=== PATIENT | male | born 1955 | race Caucasian/White ===

== ENCOUNTER 2017-06-28 09:21 | Inpatient (IN) | payer OTHER ==
[2017-06-21 11:29] VITALS: BMI 30.8
[~2017-06-28 09:21] MED LIST: CEFAZOLIN 2 GM/D5W 2 GM/50 ML ML IVPB ONE; TRANEXAMIC ACID 1000 MG/10 ML VIAL IVPUSH ONE
[2017-06-28] MEDS ORDERED: oxyCODONE HCL 10 MG SUSTAINED ACTING TABLET PO ONE ×2 (09:24)
[2017-06-28] MEDS ORDERED: CELECOXIB 200 MG CAPSULE PO ONE (09:24)
[2017-06-28] MEDS ORDERED: VANCOMYCIN 1 GRAM (PRE-DOCKED) 1,000 MG/250 ML BAG IVPB ONE (10:00)
[2017-06-28] MEDS ORDERED: oxyCODONE HCL 10 MG SUSTAINED ACTING TABLET ONE (12:03)
[2017-06-28] MEDS ORDERED: CELECOXIB 200 MG CAPSULE ONE (12:04)
[2017-06-28] MEDS ORDERED: ROPIVACAINE HCL 0.5% 30ML VIAL ONE (12:54)
[2017-06-28] MEDS ORDERED: EPINEPHrine/PF 1 MG/1 ML (1:1,000) AMPULE ONE (12:54)
[2017-06-28] MEDS ORDERED: DEXAMETHASONE SOD PHOSPHATE/PF 10 MG/ML SDV ONE (12:54)
[2017-06-28] MEDS ORDERED: MIDAZOLAM HCL 2 MG/2 ML SINGLE DOSE VIAL ONE ×4 (12:54→18:01)
[2017-06-28] MEDS ORDERED: ceFAZolin SODIUM 1 GM VIAL ONE ×2 (13:08→18:32)
[2017-06-28] MEDS ORDERED: TRANEXAMIC ACID 1000 MG/10 ML VIAL ONE (13:08)
[2017-06-28] MEDS ORDERED: VANCOMYCIN 1,000 MG VIAL (RESTRICTED TO ID ONLY) ONE (13:08)
[2017-06-28] MEDS ORDERED: PROPOFOL 20 ML ONE (13:08)
[2017-06-28] MEDS ORDERED: SODIUM CHLORIDE 0.9% P/F 10 ML VIAL IJ ONE (13:13)
[2017-06-28] MEDS ORDERED: DESFLURANE GAS 240 ML BOTTLE IH ONE (13:20)
[2017-06-28] MEDS ORDERED: ONDANSETRON 4 MG/2 ML VIAL IVPUSH PRN ×2 (19:00→20:09)
[2017-06-28] MEDS ORDERED: SENNOSIDES/DOCUSATE COMBO (SENNA PLUS) TABLET (UD) PO PRN (19:00)
--- NOTE | 2017-06-28 19:22 | OP ---
Operative Note - Note: Operative Date: 06/28/17 Pre-Operative Diagnosis: Left hip DJD Operation: Left total hip replacement Implants: Antoinette. Cup - Trident, 58mm, cluster hole. Poly - 32mm, neutral. Stem - Accolade II, #5, 127 degree NSA (high offset). Head - 32mm, +4mm, Ceramic/Biolox Post-Operative Diagnosis: Same as Pre-op Surgeon: Jose M Salazar Relay Repairer: Mark Salazar Anesthesiologist/HOT DIMPLING MACHINE OPERATOR: Dominick Bang Anesthesia: Spinal Specimens Removed: Left femoral head Estimated Blood Loss (mls): 150 Fluid Volume Replaced (mls): 2,000 (Crystalloid) Operative Report Dictated: Yes
--- NOTE | 2017-06-28 19:25 | PN ---
Progress Note (short form) - Note Progress Note: 62M s/p L AUDREY POD #0. -Pain control. -DVT PPx: -Chemical: ASA 81mg PO BID x 6 weeks. -Mechanical: YUAN's, SCD's. -Incentive spirometry. -PT/OT/Rehab, OOB. -WBAT LLE. -Post-op Ancef x 2 doses. -f/u post-op TOV. -f/u AM labs. -Diet. -Care per medical hospitalist team. -Discharge planning. -Will follow. Jose M Salazar MD (Orthopaedic Surgery).
[2017-06-28] MEDS ORDERED: PROMETHAZINE HCL 25 MG/1 ML VIAL IVPUSH PRN (20:09)
[2017-06-28] MEDS ORDERED: oxyCODONE HCL 5 MG TABLET PO PRN (20:09)
[2017-06-28] MEDS ORDERED: LACTATED RINGERS SOLUTION 1,000 ML IV SCH (20:15)
[2017-06-28] MEDS ORDERED: ACETAMINOPHEN 325 MG TABLET (FP) PO PRN (21:00)
[2017-06-28] MEDS: ACETAMINOPHEN 325 MG TABLET (FP) PO SCH ×2 (21:55→22:44)
[2017-06-28] MEDS: ASPIRIN 81 MG CHEWABLE TABLETS PO SCH (22:42)
[2017-06-28] MEDS: oxyCODONE HCL 10 MG SUSTAINED ACTING TABLET PO SCH (22:42)
[2017-06-29] MEDS: ACETAMINOPHEN 325 MG TABLET (FP) PO SCH ×4 (01:39→19:37)
[2017-06-29] MEDS: ceFAZolin 2 GRAM PREMIX BAG IVPB SCH ×2 (01:39→09:54)
[2017-06-29] MEDS: oxyCODONE HCL 5 MG TABLET PO PRN ×2 (01:39→04:50)
[2017-06-29 08:27] LABS: HEMOGLOBIN 13.1 GM/dl (11.7-16.9); MCH 32.3 pg (25.7-33.7); MCHC 34.5 g/dl (32.0-35.9); MEAN CELL VOLUME 93.5 fl (80-96); MEAN PLT VOLUME 7.5 fl (7.5-11.1); PLATELET COUNT 182 K/MM3 (134-434); RBC 4.06 M/mm3 (4.00-5.60); RDW 11.8 % (11.9-15.9)
[2017-06-29 09:08] LABS: ANION GAP 7 (8-16); BLOOD UREA NITROGEN 19 mg/dl (7-18); CALCIUM 8.5 mg/dl (8.4-10.2); CHLORIDE 102 mmol/L (98-107); CO2 25 mmol/L (22-28); GLUCOSE,RANDOM 134 mg/dl (74-106); POTASSIUM 4.2 mmol/L (3.5-5.1); SODIUM 134 mmol/L (136-145)
[2017-06-29 09:28] LABS: CREATININE < 0.8 mg/dl (0.6-1.3)
[2017-06-29] MEDS: ASPIRIN 81 MG CHEWABLE TABLETS PO SCH ×2 (09:54→22:32)
[2017-06-29] MEDS: oxyCODONE HCL 10 MG SUSTAINED ACTING TABLET PO SCH ×2 (09:54→22:40)
--- NOTE | 2017-06-29 10:16 | PN ---
Progress Note (short form) - Note Progress Note: Anesthesiology Post-op/Pain Service 62 y.o. man POD#1 s/p left THR under peripheral nerve blocks and spinal anesthesia. Pt. doing well, participating in PT. He does c/o some pain but states it is 3/ 10. VSS. No residual paresthesia. 62 y.o. with stable post-operative course s/p left THR. Continue post-op management as per primary team.
--- NOTE | 2017-06-29 17:03 | CONSULT ---
Consultation: REQUESTING PROVIDER: Dr Salazar CONSULT REQUEST: We have been asked to medically evaluate this patient for medical management HISTORY OF PRESENT ILLNESS: Patient is a 62 y/o male with a past medical history of left hip degenerative joint disease, patient is s/p left hip replacement, 06/28/17, Dr Salazar, spinal anesthesia. REVIEW OF SYSTEMS: CONSTITUTIONAL: Absent: fever, chills, diaphoresis, generalized weakness, malaise, loss of appetite, weight change HEENT: Absent: rhinorrhea, nasal congestion, throat pain, throat swelling, difficulty swallowing, mouth swelling, ear pain, eye pain, visual changes CARDIOVASCULAR: Absent: chest pain, syncope, palpitations, irregular heart rate, lightheadedness , peripheral edema RESPIRATORY: Absent: cough, shortness of breath, dyspnea with exertion, orthopnea, wheezing, stridor, hemoptysis GASTROINTESTINAL: Absent: abdominal pain, abdominal distension, nausea, vomiting, diarrhea, constipation, melena, hematochezia GENITOURINARY: Absent: dysuria, frequency, urgency, hesitancy, hematuria, flank pain, genital pain MUSCULOSKELETAL: Absent: myalgia, arthralgia, joint swelling, back pain, neck pain SKIN: Absent: rash, itching, pallor HEMATOLOGIC/IMMUNOLOGIC: Absent: easy bleeding, easy bruising, lymphadenopathy, frequent infections ENDOCRINE: Absent: unexplained weight gain, unexplained weight loss, heat intolerance, cold intolerance NEUROLOGIC: Absent: headache, focal weakness or paresthesias, dizziness, unsteady gait, seizure, mental status changes, bladder or bowel incontinence PSYCHIATRIC: Absent: anxiety, depression, suicidal or homicidal ideation, hallucinations. PHYSICAL EXAMINATION Vital Signs - 24 hr 06/28/17 06/28/17 06/28/17 19:15 19:20 19:25 Temperature 98.7 F 98.7 F 98.7 F Pulse Rate 80 76 81 Respiratory 16 16 16 Rate Blood Pressure 93/64 96/59 86/59 O2 Sat by Pulse 96 96 96 Oximetry (%) 06/28/17 06/28/17 06/28/17 19:30 19:45 20:00 Temperature 98.7 F 98.7 F 98.7 F Pulse Rate 79 70 66 Respiratory 16 16 16 Rate Blood Pressure 87/62 85/60 85/56 O2 Sat by Pulse 96 96 96 Oximetry (%) 06/28/17 06/28/17 06/28/17 20:15 20:30 20:35 Temperature 98.7 F 98.7 F 98.7 F Pulse Rate 76 76 76 Respiratory 16 16 16 Rate Blood Pressure 89/56 92/56 92/56 O2 Sat by Pulse 96 96 Oximetry (%) 06/28/17 06/28/17 06/29/17 22:17 22:53 00:54 Temperature 98.8 F Pulse Rate 82 74 Respiratory 16 18 18 Rate Blood Pressure 90/59 98/62 O2 Sat by Pulse 96 97 Oximetry (%) 06/29/17 06/29/17 06/29/17 05:33 05:34 08:31 Temperature 98.6 F Pulse Rate 64 Respiratory 18 18 Rate Blood Pressure 92/50 O2 Sat by Pulse 99 96 Oximetry (%) 06/29/17 14:00 Temperature 98.8 F Pulse Rate 61 Respiratory 18 Rate Blood Pressure 97/62 O2 Sat by Pulse 100 Oximetry (%) GENERAL: Awake, alert, and fully oriented, in no acute distress. HEAD: Normal with no signs of trauma. EYES: Pupils equal, round and reactive to light, extraocular movements intact, sclera anicteric, conjunctiva clear. No lid lag. EARS, NOSE, THROAT: Ears normal, nares patent, oropharynx clear without exudates. Moist mucous membranes. NECK: Normal range of motion, supple without lymphadenopathy, JVD, or masses. LUNGS: Breath sounds equal, clear to auscultation bilaterally. No wheezes, and no crackles. No accessory muscle use. HEART: Regular rate and rhythm, normal S1 and S2 without murmur, rub or gallop. ABDOMEN: Soft, nontender, not distended, normoactive bowel sounds, no guarding, no rebound, no masses. No hepatomegaly or splenomegaly. MUSCULOSKELETAL: Normal range of motion at all joints. No bony deformities or tenderness. No CVA tenderness. UPPER EXTREMITIES: 2+ pulses, warm, well-perfused. No cyanosis. No clubbing. Cap refill <2 seconds. No peripheral edema. LOWER EXTREMITIES: 2+ pulses, warm, well-perfused. No calf tenderness. No peripheral edema. NEUROLOGICAL: Cranial nerves II-XII intact. Normal speech. Normal gait. PSYCHIATRIC: Cooperative. Good eye contact. Appropriate mood and affect. SKIN: Warm, dry, normal turgor, no rashes or lesions noted. Laboratory Results - last 24 hr 06/29/17 06/29/17 08:24 08:27 WBC 12.0 H RBC 4.06 Hgb 13.1 Hct 38.0 MCV 93.5 MCH 32.3 MCHC 34.5 RDW 11.8 L Plt Count 182 MPV 7.5 Sodium 134 L Potassium 4.2 Chloride 102 Carbon Dioxide 25 Anion Gap 7 L BUN 19 H Creatinine < 0.8 Random Glucose 134 H Calcium 8.5 Active Medications Generic Name Dose Route Start Last Admin Trade Name Freq PRN Reason Stop Dose Admin Acetaminophen 650 mg 06/28/17 21:00 Tylenol - PO Q4H PRN FEVER Acetaminophen 650 mg 06/28/17 20:15 06/29/17 14:56 Tylenol - PO 07/01/17 20:14 650 mg Q6H SUNDAR Administration Aspirin 81 mg 06/28/17 22:00 06/29/17 09:54 Asa - PO 81 mg BID SUNDAR Administration Lactated Ringer's 1,000 mls @ 75 mls/hr 06/28/17 20:15 06/28/17 22:45 Lactated Ringers Solution IV 75 mls/hr ASDIR SUNDAR Administration Ondansetron HCl 4 mg 06/28/17 19:00 Zofran Injection IVPUSH Q6H PRN NAUSEA Oxycodone HCl 5 mg 06/28/17 20:09 Roxicodone - PO Q3H PRN PAIN LEVEL 1-5 Oxycodone HCl 10 mg 06/28/17 20:09 06/29/17 04:50 Roxicodone - PO 10 mg Q3H PRN Administration PAIN LEVEL 6-10 Oxycodone HCl 10 mg 06/28/17 22:00 06/29/17 09:54 Oxycontin - PO 07/01/17 20:10 10 mg BID SUNDAR Administration Senna/Docusate Sodium 2 tablet 06/28/17 19:00 Pericolace - PO HS PRN CONSTIPATION ASSESSMENT/PLAN: 1) ms s/p left hip replacement, POD #1 - prn pain medication - physical therapy as per the orthopedist, Dr Salazar - incentive spirometer - prn pain medication Dispo: We will continue to follow the patient. Thank you for this consultative opportunity. Visit type - Emergency Visit Emergency Visit: No - New Patient This patient is new to me today: Yes Date on this admission: 06/29/17 - Critical Care Critical Care patient: No
[2017-06-29] MEDS ORDERED: oxyCODONE HCL 5 MG TABLET ONE (19:34)
[2017-06-29] MEDS ORDERED: ACETAMINOPHEN 325 MG TABLET (FP) ONE (19:34)
[2017-06-29] MEDS ORDERED: oxyCODONE HCL 10 MG SUSTAINED ACTING TABLET ONE (22:39)
[2017-06-30] MEDS ORDERED: oxyCODONE HCL 5 MG TABLET ONE (03:59)
[2017-06-30] MEDS: oxyCODONE HCL 5 MG TABLET PO PRN ×2 (04:01→09:27)
[2017-06-30] MEDS: ACETAMINOPHEN 325 MG TABLET (FP) PO SCH (04:02)
[2017-06-30 06:15] VITALS: BP 126/37; PULSE 80; TEMP 98.9
--- NOTE | 2017-06-30 07:21 | PN ---
Progress Note (short form) - Note Progress Note: POD #2 s/p Left total hip replacement
--- NOTE | 2017-06-30 07:45 | DS ---
Physical Exam: SUBJECTIVE: POD #2 s/p LEFT total hip arthroplasty. Patient seen and examined OBJECTIVE: Vital Signs Temperature 98.9 F 06/30/17 06:14 Pulse Rate 80 06/30/17 06:14 Respiratory Rate 18 06/30/17 06:14 Blood Pressure 126/37 06/30/17 06:14 O2 Sat by Pulse Oximetry (%) 95 06/30/17 06:14 PHYSICAL EXAM GENERAL: The patient is awake, alert, and fully oriented, in no acute distress. HEAD: Normal with no signs of trauma. EYES: PERRL, extraocular movements intact, sclera anicteric, conjunctiva clear. ENT: Ears normal, nares patent, oropharynx clear without exudates, moist mucous membranes. NECK: Trachea midline, full range of motion, supple. LUNGS: cta bilat HEART: rrr ABDOMEN: Soft, nt, nd, normoactive bowel sounds EXTREMITIES: 2+ pulses, warm, well-perfused, no edema. GMNVI NEUROLOGICAL: Cranial nerves II through XII grossly intact. Normal speech, gait not observed. PSYCH: Normal mood, normal affect. SKIN: Warm, dry, normal turgor, no rashes or lesions noted. LABS CBC,CMP WBC 12.0 K/mm3 (4.0-10.8) H 06/29/17 08:24 RBC 4.06 M/mm3 (4.00-5.60) 06/29/17 08:24 Hgb 13.1 GM/dl (11.7-16.9) 06/29/17 08:24 Hct 38.0 % (35.4-49) 06/29/17 08:24 MCV 93.5 fl (80-96) 06/29/17 08:24 MCH 32.3 pg (25.7-33.7) 06/29/17 08:24 MCHC 34.5 g/dl (32.0-35.9) 06/29/17 08:24 RDW 11.8 % (11.9-15.9) L 06/29/17 08:24 Plt Count 182 K/MM3 (134-434) 06/29/17 08:24 MPV 7.5 fl (7.5-11.1) 06/29/17 08:24 Sodium 134 mmol/L (136-145) L 05/24/18 08:27 Potassium 4.2 mmol/L (3.5-5.1) 06/29/17 08:27 Chloride 102 mmol/L (98-107) 06/29/17 08:27 Carbon Dioxide 25 mmol/L (22-28) 06/29/17 08:27 Anion Gap 7 (8-16) L 06/29/17 08:27 BUN 19 mg/dl (7-18) H 06/29/17 08:27 Creatinine < 0.8 mg/dl (0.6-1.3) 06/29/17 08:27 Random Glucose 134 mg/dl (74-106) H 06/29/17 08:27 Calcium 8.5 mg/dl (8.4-10.2) 06/29/17 08:27 HOSPITAL COURSE: Date of Admission:06/28/17 Date of Discharge: 06/30/17 The patient was admitted to the Med-Surg Unit after an elective repair of left hip DJD. Now, s/p left total hip replacement. The day of surgery, the patient ambulated the hallways with assistance. Narcotic and non-narcotic pain management control was achieved with an oral and IV approach. Grecia-operative IV ABX were administered. DVT prophylaxis was achieved with SCDs and early ambulation. The discharge instructions and an oral pain management plan were reviewed with the patient. All questions answered. Above plan discussed with Dr. Salazar and agreed. Minutes to complete discharge: 25 Visit type - Case Type Case Type: Scheduled - New patient This patient is new to me today: Yes Date on this admission: 06/30/17
[2017-06-30 08:08] LABS: HEMATOCRIT 36.9 % (35.4-49); HEMOGLOBIN 12.9 GM/dl (11.7-16.9); MCH 33.2 pg (25.7-33.7); MCHC 35.1 g/dl (32.0-35.9); MEAN CELL VOLUME 94.4 fl (80-96); MEAN PLT VOLUME 7.9 fl (7.5-11.1); PLATELET COUNT 167 K/MM3 (134-434); RBC 3.91 M/mm3 (4.00-5.60); RDW 11.9 % (11.9-15.9); WHITE BLOOD COUNT 9.7 K/mm3 (4.0-10.8)
[2017-06-30] MEDS ORDERED: PT OWN MED DRAWER 7, Y5N ONE (09:22)
[2017-06-30] MEDS: ASPIRIN 81 MG CHEWABLE TABLETS PO SCH (09:29)
--- NOTE | 2017-07-04 17:34 | PATH ---
Surgical Pathology Report Patient Name: NIKOLAS ZAVALA Med. Rec. #: [id number] /Age/Gender: 1955 (Age: 62) / M Account: [id number] Location: [facility] MED-SURG Taken: 06/29/2017 Received: 06/29/2017 Reported: 07/04/2017 Physicians: Jose M Salazar M.D. Specimen(s) Received LEFT FEMORAL HEAD Clinical History Left Left hip osteoarthritis Final Diagnosis LEFT FEMORAL HEAD, RESECTION: DEGENERATIVE JOINT DISEASE, LEFT HIP. Electronically Signed Kaushal Robin M.D. Gross Description Received in formalin, labeled "left femoral head," is a 4.5 x 4.5 x 4.0 cm. femoral head with a 0.9 cm in length portion of femoral neck attached. The margin of resection is smooth. There is a 4.5 cm in greatest dimension area of eburnation present. The remaining articular surface is zaldivar-yellow and diffusely granular. The underlying trabecular bone is yellow and hard. A malt liquors sales representative section is submitted in one cassette, following decalcification. /06/30/2017 [facility]06/30/2017
--- NOTE | 2017-07-06 13:09 | OP ---
DATE OF OPERATION: 06/28/2017 DIAGNOSIS: Left hip degenerative joint disease. OPERATION: Left total hip replacement via direct superior approach. ESTIMATED BLOOD LOSS: 150 mL. FLUID INTAKE: Crystalloid 2 liters. PERIOPERATIVE ANTIBIOTICS GIVEN: Vancomycin 1 g and Ancef 2 g preop with 1 g Ancef given at the time of seating of the femoral implant. IMPLANTS USED: [place] cup; Trident 58-mm, cluster hole, polyethylene 32-mm neutral stem; Accolade II number 5, 127-degree neck-shaft angle, high-offset head; a 32- mm, +4-mm length ceramic Biolox. DICTATION ENDS HERE Pre-Operative Diagnosis: Left hip DJD. Post-Operative Diagnosis: Same. Surgical Procedure: Left total hip replacement. Anaesthesia: Spinal, sedation. Position: Right lateral decubitus. Incision: Direct Superior. Estimated Blood Loss: See anaesthesia record. Intravenous Fluid: See anaesthesia record. Specimens: Left femoral head. Drains: None. Complications: None. Urine output: None. Bacteriology: None. Transfusions: None. Closure: #1, 2-0 Vicryl; 3-0 Biosyn. Indications: The patient was indicated for a left total hip replacement in order to facilitate improved motion and mobilization, and to prevent the complications associated with a sedentary lifestyle. The patient was identified in the holding area by his armband. A long discussion was held with the patient regarding the risks, benefits and alternatives of the above named procedure. Risks include but are not limited to : pain, bleeding, infection, damage to surrounding structures (including nerves , blood vessels, skin, ligaments, tendons and bone), wound complications, failure of hardware/implants/reduction, need for further surgery, blood clots, myocardial infarction, pulmonary embolism, cerebrovascular insult, anaesthesia complications, compartment syndrome, limb loss, limp, loss of function, and . Benefits as mentioned above. Alternatives include no surgery. All questions were answered. The patient understood and agreed to the procedure. Informed consent was obtained, witnessed and verified. The patients correct operative limb - that is the left lower extremity - was marked, and the patient was taken to the operating room after being seen by the anesthesia and nursing staff. Procedure: The patient was brought into the operating room, placed on the OR table and secured with a safety strap. Consent and the operative site were again verified with the patient and nursing and anaesthesia staff. Anaesthesia, IV antibiotics, and TXA were then administered without complication. A time out was done led by , the attending surgeon. A pre-operative orthpaedic exam revealed a 1-2cm leg length discrepancy, shorter on the left thank the right, and a marked reduction in passive range of motion of the left hip. The patient was gently turned into the right lateral decubitus position. An axillary roll was placed. A Stulberg hip positioner with well-padded bolsters was used to secure the patient in the lateral decubitus position. The down arm was placed on a well-padded arm board. The up arm was brought across the patients body and placed on 2 pillows. Egg crates were placed under the down knee and ankle, and bony prominences were well padded. The operative site was then prepped and draped in the standard sterile fashion. Time out was again done and the case began. Operation: A standard Direct Superior surgical approach was utilized to access the hip joint. With a #10 blade, a skin incision was taken from the posterior-superior corner of the greater trochanter in a posterior-superior direction. This was approximately 10cm in length. Electrocautery was utilized to carry the deep dissection down to the level of the gluteus antoine fascia. Hemostasis was assured using electrocautery (bipolar and unipolar). The gluteus antoine fascia was incised, and the fibers of gluteus antoine were in line with the trajectory of the incision. This confirmed the accuracy of our planned incision based on palpated landmarks and surface anatomy. A Shaver elevator was used to split the distal fibers of gluteus antoine, in line with the fibers, just proximal to their insertion into the iliotibial band. Great care was taken not to incise the iliotibial band. Gluteus antoine fibers were split proximally using the Shaver elevator until reaching the apex of the wound. Again, hemostasis was assured. The kalin-capsular fat pad was exposed utilizing curved handle bar retractors. The kalin-capsular fat pad was excised off the inferior border of the gluteus medius muscle belly, exposing the insertion of the hip short external rotator muscle group. The piriformis tendon was identified and freed from adhesions to the capsule using a 90-degree clamp. This tendon was then released from its insertion using electrocautery. The tendon was tagged with a # 1 Ethibond suture and tied to the inferior aspect of the proximal wound apex. The tendon, thus, served as a sling to retract and protect the sciatic nerve. With the piriformis tendon reflected away from its insertion, the hip joint capsule was visualized. Electrocautery was used to perform a capsulotomy and synovial joint fluid was aspirated. Next, the superior leaflet of the capsule was elevated using a Shaver elevator to create separation from the underlying labrum and also to create a plane for later placement of a supra-acetabular retractor. The labrum was excised using electrocautery. The hip was then gently dislocated. A standard femoral neck cut was made using an oscillating saw. A 3/4 " osteotome was delivered into the femoral head using mallet strikes. The femoral head was then removed. Anterior, inferior, and supra-acetabular retractors were placed to expose the acetabulum. The pulvinar was excised using electrocautery. Odd sized reamers were used to prepare the acetabular bone bed. Healthy blushes of bleeding were observed from the reamed cancellous bone bed. Next, a size 58mm Antoinette Trident cup was impacted into position, achieving excellent press-fit. A size 32mm neutral polyethylene liner was then impacted into the cup. Excellent placement of the polyethylene liner, and excellent press fit of the cup were confirmed. Next, attention was turned to femoral preparation. The anterior and supra-acetabular retractors were removed. The cut femoral neck was then exposed using the inferior acetabular retractor around the calcar, and a straight 90-degree retractor to retract gluteus medius. The box-cutter osteotome was used with a mallet to removed bone from the lateral femoral neck. An opening reamer was delivered by hand to find the femoral canal. A lateralizing reamer was used with power to lateralize the proximal entry into the canal, so as to avoid placing the stem into varus. The femoral bone bed was then prepared using broaches with gentle mallet strikes. The tibia was used as a goniometer with which to dial in approximately 5 degrees of stem anteversion. Trial components were assembled and the hip was reduced. The hip was taken through a full range of motion and proved stable throughout this range of motion, including at the extremes of positions of compromised. All trial femoral components were removed. Another 1g of IV Ancef was administered so that the bone bed would be rich with antibiotic at the time of seating of the femoral implant. A Antoinette Accolade II (127-degree NSA, high offset) #5 stem was then implanted using gentle mallet strikes, diligently matching the prepared degree of stem anteversion. With the stem fully seated, a 32mm diameter , +4mm length ceramic/Biolox femoral head was then selected and implanted. The hip was once again reduced, and taken through a full range of motion. Stability was once again assured. Leg length was a near match, and quite satisfactory. The wounds were copiously irrigated, as they had been regularly throughout the case so as to keep the retracted tissues wet, and in order to flush out wound debris. The capsule was primarily repaired using #1 Vicryl sutures in simple interrupted fashion. The tagged piriformis tendon was released and tied to the posterior-lateral corner of the greater trochanter. The remaining wounds were again irrigated. Hemostasis was assured and the wound was closed primarily using #1 and 2-0 Vicryl sutures. A 3-0 Biosyn suture was used to perform a subcuticular wound closure. A sterile, compressive dressing was applied. The sponge and needle counts were correct at the end of the case and I, the attending surgeon, was present and scrubbed throughout the case. The patient was then transferred into a supine position and onto the hospital bed. A standard AP-pelvis x-ray was taken, demonstrating good overall alignment with a well reduced, congruent hip. There was no evidence of subsidence, loosening, or kalin-prosthetic fracture. The patient was then was then transferred to the recovery room without incident/complications and in stable condition, having tolerated the procedure well. MD SHANTI Hardin/[id number] MTDD
== END 2017-06-30 13:15 | disposition home health service (06) | DRG 301 ==
LOC: FM/S 09:21
PROVIDERS: ADMIT Orthopaedic Surgery Adult Reconstructive Orthopaedic Surgery; ATTEND Orthopaedic Surgery Adult Reconstructive Orthopaedic Surgery
PROC: 0SRB03Z Replacement of Left Hip Joint with Ceramic Synthetic Substitute, Open Approach (ICD-10-PCS; principal; 2017-06-28 17:18)
DX: M16.12 Unilateral primary osteoarthritis, left hip (principal)
CPT/HCPCS: 36415; 73502-TC-LT-FY; 80048; 85027; 88304-TC; 88311-TC; 94760; 97116-GP; 97162-GP